=== PATIENT | female | born 1960 | race Asian ===

== ENCOUNTER 2020-12-07 13:37 | Emergency (ER) | payer OTHER ==
[~2020-12-07] VITALS: Ht 167.6 cm; Wt 54.4 kg
[2020-12-07] MEDS ORDERED: IOHEXOL 350 MG/ML 100ML IJ ONE ×2 (18:04→19:49)
[2020-12-07] MEDS ORDERED: IOHEXOL 300 MG/ML 100ML BOTTLE IJ ONE ×2 (18:05→19:19)
[2020-12-07 19:37] LABS: Basophils # (auto) 0 10 ^3/uL (0-0.2); Basophils % (auto) 0.1 % (0.0-2.0); Eosinophils # (auto) 0 10 ^3/uL (0-0.8); Hematocrit 40.5 % (36.0-46.0); Hemoglobin 13.7 g/dL (12.2-16.2); Lymphocytes # (auto) 0.7 10 ^3/uL (0.4-5.4); Lymphocytes % (auto) 6.3 % (10.0-50.0); Mean Corpuscular Hemoglobin 28.8 pg (28.0-32.0); Mean Corpuscular Hgb Conc. 33.8 g/dL (32.0-36.0); Mean Corpuscular Volume 85.3 fL (80.0-100.0); Monocytes # (auto) 0.6 10 ^3/uL (0-1.3); Monocytes % (auto) 5.4 % (0.0-12.0); Neutrophils # (auto) 9.6 10 ^3/uL (1.6-8.6); Neutrophils % (auto) 88.2 % (37.0-80.0); Nucleated Red Blood Cells % 0.2 %; Red Blood Cells 4.75 10^6/uL (4.0-5.20); Red Cell Distribution Width 13.4 % (11.8-14.3); White Blood Cell 10.8 10^3/uL (4.4-10.8)
[2020-12-07 19:52] LABS: INR 0.99 (0.9-1.15)
[2020-12-07 19:55] LABS: Calcium 9.3 mg/dL (8.5-10.1); Potassium 3.4 mmol/L (3.5-5.1)
[2020-12-07 19:59] LABS: BUN/Creatinine Ratio 36.4; Bilirubin, Total 0.8 mg/dL (0.2-1.0)
[2020-12-07 23:43] VITALS: BP 165/84
== END 2020-12-08 | disposition short-term general hospital (02) ==
LOC: EDBD 13:37 → ER 13:37
DX: S63.114A Dislocation of metacarpophalangeal joint of right thumb, initial encounter (principal); S63.260A Dislocation of metacarpophalangeal joint of right index finger, initial encounter; S52.592A Other fractures of lower end of left radius, initial encounter for closed fracture; S52.615A Nondisplaced fracture of left ulna styloid process, initial encounter for closed fracture; S22.22XA Fracture of body of sternum, initial encounter for closed fracture; S01.81XA Laceration without foreign body of other part of head, initial encounter; S27.329A Contusion of lung, unspecified, initial encounter; R51.9 Headache, unspecified; R00.0 Tachycardia, unspecified; V49.59XA Passenger injured in collision with other motor vehicles in traffic accident, initial encounter; Y93.89 Activity, other specified; Y92.488 Other paved roadways as the place of occurrence of the external cause; Y99.8 Other external cause status
CPT/HCPCS: 36415; 70450; 71045; 71250; 71260; 72100; 72125; 73090; 73130; 74177; 80053; 85025; 85610; 99285; Q9967